=== PATIENT | male | born 1965 | race Caucasian/White ===

== ENCOUNTER 2016-08-02 15:06 | Emergency (ER) | payer BC ==
[2016-08-02 15:16] VITALS: BP 106/77; PULSE 69; RESP 16; TEMP 97.9
--- NOTE | 2016-08-02 15:36 | ED ---
Wound/Laceration HPI - General Chief Complaint: Wound/Laceration Stated Complaint: Lac/Finger Time Seen by Provider: 08/02/16 15:21 Source: patient, RN notes reviewed Mode of arrival: ambulatory Limitations: no limitations - History of Present Illness Initial Comments: 50-year-old male presents to emergency room chief complaint of right finger laceration. Patient states that he cut it while working with a tool all he was 6 in his car. Patient states hewas deep to his concern. Patient states that it was a sharp tool that could've broken off of it. Patient states he does not recall his last tetanus. Patient no other symptoms with this.Patient denies any recent fever, chills, shortness of breath, chest pain, back pain, abdominal pain, nausea vomiting, numbness or tingling, dysuria or hematuria, constipation or diarrhea, headaches or visual changes, or any other current symptoms. - Related Data Allergies Allergy/AdvReac Type Severity Reaction Status Date / Time No Known Allergies Allergy Verified 08/02/16 15:15 Review of Systems ROS Statement: Those systems with pertinent positive or pertinent negative responses have been documented in the HPI. ROS Other: All systems not noted in ROS Statement are negative. Past Medical History Past Medical History: No Reported History History of Any Multi-Drug Resistant Organisms: None Reported Past Surgical History: Back Surgery Additional Past Surgical History / Comment(s): shoulder Past Psychological History: No Psychological Hx Reported Smoking Status: Current every day smoker Past Alcohol Use History: Rare Past Drug Use History: None Reported General Exam - General Exam Comments Initial Comments: General: The patient is awake and alert, in no distress, and does not appear acutely ill. Neck: The neck is supple, there is no tenderness. Cardiovascular: There is a regular rate and rhythm. No murmur, rub or gallop is appreciated. Respiratory: Lungs are clear to auscultation, respirations are non-labored, breath sounds are equal. No wheezes, stridor, rales, or rhonchi. Musculoskeletal: Sensation intact with 2+ pulses throughout the right upper Extremities. Range of motion of the right finger.5/5 muscle strength testing. Patient does appear to have 3cm laceration over the PIP joint to the right index finger. Neurological: CN II-XII intact, There are no obvious motor or sensory deficits. Coordination appears grossly intact. Speech is normal. Skin: Skin is warm and dry and no rashes or lesions are noted. Psychiatric: Normal mood and affect. Limitations: no limitations Course Vital Signs 08/02/16 15:13 Temperature 97.9 F Pulse Rate 69 Respiratory 16 Rate Blood Pressure 106/77 O2 Sat by Pulse 97 Oximetry Procedures - Procedures Initial comment: The skin was anesthetized with 1% lidocaine. The laceration was then cleansed with Betadine and irrigated with normal saline. The wound was inspected, and there was no evidence of injury to deep structures. No foreign body was noted in the wound. A total of 5 skin sutures were placed utilizing 5-0 nylon to 3cm laceration to the right index finger. Medical Decision Making - Medical Decision Making 50-year-old male presents emergency Department chief complaint of right finger laceration. This time patient had suture repair. Discussed care follow-up and return parameters. We discussed all the patient's questions. He stated he understood all questions have been answered. They will be discharged home. Disposition Clinical Impression: Laceration of right index finger Disposition: HOME SELF-CARE Condition: Stable Instructions: Laceration (ED) Additional Instructions: Please use medication as discussed. Please follow up with family doctor if symptoms have not improved over the next two days. Please return to the emergency room if your symptoms increase or worsen or for any other concerns. Please return to the emergency room in 8-10 days to have sutures removed. Please leave wound covered for the first 24-48 hours and then leave open to air after that time. Please use clean soap and water to clean the suture area to prevent scabbing over the top of your sutures. Please watch for any signs of infection which may include but not limited to increased pain, swelling, redness , fever or chills. Please return to the emergency room if any signs of infection do occur. Please return to the emergency room for any other concerns or complications. Referrals: Fitz Youngblood MD [Primary Care Provider] - 1-2 days Time of Disposition: 15:50
[2016-08-02] MEDS ORDERED: DIPH,PERTUS(ACELL)TETVAC-LF 0.5 ML VIAL IM ONE (15:37)
== END 2016-08-02 16:02 | disposition home or self-care (01) ==
LOC: EC 15:06
DX: S61.210A Laceration without foreign body of right index finger without damage to nail, initial encounter (principal); F17.200 Nicotine dependence, unspecified, uncomplicated; Z23 Encounter for immunization; W45.8XXA Other foreign body or object entering through skin, initial encounter; Y92.810 Car as the place of occurrence of the external cause
CPT/HCPCS: 12002; 90471; 90715; 99282

== ENCOUNTER → 2017-06-18 | Outpatient (CLI) | payer BC ==
[~2017-06-18] MED LIST: REGADENOSON 0.4 MG/5 ML SYRINGE IV ONE
--- NOTE | 2017-06-18 11:17 | NM ---
EXAMINATION TYPE: NM stress lexiscan cardiolite DATE OF EXAM: 06/18/2017 COMPARISON: None HISTORY: Chest pain, R07.89 TECHNIQUE: After the intravenous administration of 10.85 mCi Tc 99m Sestamibi - Cardiolite resting S PECT images acquired 45 minutes post injection. The patient received 0.4mg Lexiscan, 29 mCi Tc 99m Sestamibi - Stress images obtained 30 minutes post injection FINDINGS: Review of stress and rest SPECT images demonstrates no distinct perfusion abnormality. Gated analysi s shows normal wall motion with an estimated left ventricular ejection fraction of 44 %. IMPRESSION: No scintigraphic evidence for reversible ischemia. Abnormal low ejection fraction. Consider echocardi ographic correlation.
--- NOTE | 2017-06-19 13:18 | EST ---
EXERCISE STRESS DATE OF SERVICE: 06/18/2017 AGE: 51 SEX: Male HT: 69" WT: 191 pounds PROTOCOL: LEXISCAN CARDIOLITE STAGE: DURATION OF EXERCISE: HEART RATE REST: 59 BLOOD PRESSURE REST: 108/70 MAXIMUM HEART RATE ACHIEVED: 85 MAXIMUM BLOOD PRESSURE: 123/70 85% MPHR: 144 100% MPHR: 169 METS: INDICATION OF THE STUDY: Chest pain CLINICAL INFORMATION: STRESS DATA: Pretesting physical examination showed a heart rate of 59, pressure is 108/70 mmHg. Baseline EKG showed sinus rhythm. 0.4 mg of Lexiscan was given to the patient over 15 seconds per protocol. Max heart rate was 85 beats per minute and maximum pressure was 123/70 mmHg. Clinically the patient did not have any symptoms of chest pain or discomfort and the EKG did not show any significant ST or T-wave abnormalities consistent with ischemia. CONCLUSION: 1. Nondiagnostic electrocardiogram stress testing in response to Lexiscan. 2. Please follow up on the Cardiolite portion on separate report from radiology department. MMODL / IJN: [id number] /
== END | disposition home or self-care (01) ==
LOC: RADNMMAIN 08:12
PROVIDERS: ATTEND Family Medicine
DX: R07.89 Other chest pain (principal)
CPT/HCPCS: 93017; 78452; A9500; J2785

== ENCOUNTER 2018-11-15 16:27 | Emergency (ER) | payer BC ==
[2018-11-15 16:33] VITALS: BP 119/79; PULSE 76; RESP 18; TEMP 98.6
--- NOTE | 2018-11-15 17:47 | ED ---
General Adult HPI - General Chief complaint: Extremity Problem,Nontraumatic Stated complaint: leg pain & numbness Time Seen by Provider: 11/15/18 17:13 Source: patient Mode of arrival: ambulatory Limitations: no limitations - History of Present Illness Initial comments: Dictation was produced using [employer] dictation software. please excuse any grammatical, word or spelling errors. Chief Complaint: 53-year-old male with no significant comorbidities presents with chief complaint of left lower extremity paresthesias, calf pain. History of Present Illness: Patient's 53-year-old male who denies any significant comorbidities. Presents today with worsening paresthesias to his left lateral thigh and calf pain. Patient was on a road trip recently where he was driving for several hours. This morning he woke up and there was a 2 inch purple van that was around his ankle. He states it lasted for couple seconds and went away with ambulation. States that those symptoms resolved. Over the last several weeks she's been struggling with paresthesias to the left lateral thigh. States he does not wear excessively tight clothing around his waist. He does have a history of back arthritic changes. Patient states he also has some mild calf pain to his left calf. States it's worse than usual. It has any history of blood clots. No blood clots in the family. Denies any swelling to the left. The ROS documented in this emergency department record has been reviewed and confirmed by me. Those systems with pertinent positive or negative responses have been documented in the HPI. All other systems are other negative and/or noncontributory. PHYSICAL EXAM: General Impression: Alert and oriented x3, not in acute distress HEENT: Normocephalic atraumatic, extra-ocular movements intact, pupils equal and reactive to light bilaterally, mucous membranes moist. Cardiovascular: Heart regular rate and rhythm, S1&S2 audible, no murmurs, rubs or gallops Chest: Lungs clear to auscultation bilaterally, no rhonchi, no wheeze, no rales Abdomen: Bowel sounds present, abdomen soft, non-tender, non-distended, no organomegaly Musculoskeletal: Pulses present and equal in all extremities, no peripheral edema Lower extremities: Equal femoral, popliteal, DP and PT pulses bilaterally. No discolorations noted that are asymmetrical. No lower extremity swelling at the mid tib area. Motor: no focal deficits noted Neurological: CN II-XII grossly intact, no focal motor or sensory deficits noted Skin: Intact with no visualized rashes Psych: Normal affect and mood ED course: 53 male presents with paresthesias to the left lateral thigh and calf pain. On arrival are within acceptable limits. Patient denies any shortness of breath. Denies a history of blood clot. Given history of recent road trip ultrasound of his lower extremity and evaluate for possible deep venous thrombosis. Paresthesias to his left lateral thigh are likely secondary to meralgia paresthetica.Venous duplex ultrasound was performed to look for extremity. There is no signs of deep venous thrombosis. In terms of what cause patient's discoloration around his ankle area that was sporadic it's unclear cause. Patient has benign physical examination. Pulses are well over the asymptomatic leg. Patient does not have that such discoloration currently. Patient be started on gabapentin. Still to avoid any tight fitting clothing around the waist. told to follow-up with his primary care physician upon discharge. Return for was discussed. Patient with for discharge. - Related Data Home Medications Medication Instructions Recorded Confirmed Armodafinil [Nuvigil] 250 mg PO DAILY 11/15/18 11/15/18 Sertraline [Zoloft] 150 mg PO DAILY 11/15/18 11/15/18 Previous Rx's Medication Instructions Recorded Gabapentin [Neurontin] 300 mg PO DAILY #16 cap 11/15/18 Allergies Allergy/AdvReac Type Severity Reaction Status Date / Time acetaminophen AdvReac Intermediate Nausea & Verified 11/15/18 17:25 [From Darvocet-N] Vomiting propoxyphene AdvReac Intermediate Nausea & Verified 11/15/18 17:25 [From Darvocet-N] Vomiting Review of Systems ROS Statement: Those systems with pertinent positive or pertinent negative responses have been documented in the HPI. ROS Other: All systems not noted in ROS Statement are negative. Past Medical History Past Medical History: No Reported History History of Any Multi-Drug Resistant Organisms: None Reported Past Surgical History: Back Surgery Additional Past Surgical History / Comment(s): shoulder Past Psychological History: Depression Smoking Status: Current every day smoker Past Alcohol Use History: Rare Past Drug Use History: None Reported General Exam Limitations: no limitations Course Vital Signs 11/15/18 16:31 Temperature 98.6 F Pulse Rate 76 Respiratory 18 Rate Blood Pressure 119/79 O2 Sat by Pulse 97 Oximetry Disposition Clinical Impression: Meralgia paresthetica of left side Disposition: HOME SELF-CARE Condition: Good Instructions (If sedation given, give patient instructions): Meralgia Paresthetica (ED) Prescriptions: Gabapentin [Neurontin] 300 mg PO DAILY #16 cap Is patient prescribed a controlled substance at d/c from ED?: No Referrals: Fitz Youngblood MD [Primary Care Provider] - 1-2 days Time of Disposition: 20:02
--- NOTE | 2018-11-15 19:42 | US ---
EXAMINATION TYPE: US venous doppler duplex LE LT DATE OF EXAM: 11/15/2018 7:26 PM COMPARISON: NONE CLINICAL HISTORY: Pain. Pain and numbness left leg x 6 weeks. Worse x 1 day. No hx DVT. PT not on blo od thinners. SIDE PERFORMED: Left TECHNIQUE: The lower extremity deep venous system is examined utilizing real time linear array sonog franklin with graded compression, doppler sonography and color-flow sonography. VESSELS IMAGED: External Iliac Vein (EIV) Common Femoral Vein Deep Femoral Vein Greater Saphenous Vein * Femoral Vein Popliteal Vein Small Saphenous Vein * Proximal Calf Veins (* superficial vessels) Left Leg: No evidence of DVT in the left leg at this time. IMPRESSION: No evidence of deep venous thrombosis in the left leg.
== END 2018-11-15 20:05 | disposition home or self-care (01) ==
LOC: EC 16:27
DX: G57.12 Meralgia paresthetica, left lower limb (principal); F32.9 Major depressive disorder, single episode, unspecified; F17.200 Nicotine dependence, unspecified, uncomplicated; Z79.899 Other long term (current) drug therapy; Z88.5 Allergy status to narcotic agent; Z88.6 Allergy status to analgesic agent
CPT/HCPCS: 99284

== ENCOUNTER 2020-02-08 14:56 | Emergency (ER) | payer BC ==
[2020-02-08] MEDS ORDERED: KETOROLAC 15 MG/ML 1 ML VIAL IM STA (15:53)
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
[2020-02-08 16:51] VITALS: BP 110/70; PULSE 62; RESP 19; TEMP 97.7
== END 2020-02-08 16:51 | disposition home or self-care (01) ==
LOC: EC 14:56
DX: S20.212A Contusion of left front wall of thorax, initial encounter (principal); F41.9 Anxiety disorder, unspecified; F17.200 Nicotine dependence, unspecified, uncomplicated; Z79.899 Other long term (current) drug therapy; Z88.8 Allergy status to other drugs, medicaments and biological substances; Z88.5 Allergy status to narcotic agent; W01.198A Fall on same level from slipping, tripping and stumbling with subsequent striking against other object, initial encounter; Y93.89 Activity, other specified; Y92.89 Other specified places as the place of occurrence of the external cause
CPT/HCPCS: 71101; 99283; 96372; J1885

== ENCOUNTER 2022-04-04 22:34 | Emergency (ER) | payer BC, OTHER ==
[2022-04-05 00:06] VITALS: BP 120/79; PULSE 97; RESP 14; TEMP 98.8
[2022-04-05] MEDS ORDERED: SULFAMETH-TMP DS STARTER PACK 2 TAB BTL PO STA (00:31)
[2022-04-05] MEDS ORDERED: CEPHALEXIN 500MG STARTER PACK 4 CAP BTL PO STA (00:31)
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
== END 2022-04-05 01:04 | disposition home or self-care (01) ==
LOC: EC 22:34
DX: L73.9 Follicular disorder, unspecified (principal); F32.A Depression, unspecified; F17.200 Nicotine dependence, unspecified, uncomplicated; Z79.899 Other long term (current) drug therapy; Z88.5 Allergy status to narcotic agent
CPT/HCPCS: 99283

== ENCOUNTER 2022-08-09 01:11 | Emergency (ER) | payer BC ==
[2022-08-09 01:31] VITALS: TEMP 97.7
[2022-08-09] MEDS ORDERED: ONDANSETRON 4 MG/2 ML VIAL IVP STA (02:07)
[2022-08-09] MEDS ORDERED: KETOROLAC 15 MG/ML 1 ML VIAL IVP STA (02:07)
[2022-08-09 02:30] LABS: Appearance,Urine Turbid (Clear)
[2022-08-09 02:31] LABS: Color,Urine Brown
[2022-08-09 02:32] LABS: Hyaline Casts,Urine 27 /lpf (0-2); Mucus,Urine Many /hpf; RBC,Urine 54 /hpf (0-5)
[2022-08-09 03:05] LABS: Basophils % (A) 0 %; Eosinophils # (A) 0.1 k/uL (0-0.7); Eosinophils % (A) 2 %; HCT 41.7 % (39.0-53.0); HGB 13.8 gm/dL (13.0-17.5); Lymphocytes # (A) 1.3 k/uL (1.0-4.8); Lymphocytes % (A) 22 %; MCH 30.1 pg (25.0-35.0); MCHC 33.1 g/dL (31.0-37.0); MCV 91.2 fL (80.0-100.0); Mean Platelet Volume 7.2; Monocytes # (A) 0.8 k/uL (0-1.0); Monocytes % (A) 13 %; Neutrophils # (A) 3.5 k/uL (1.3-7.7); Neutrophils % (A) 59 %; Platelet Count 240 k/uL (150-450); RBC 4.57 m/uL (4.30-5.90); RDW 15.1 % (11.5-15.5)
[2022-08-09] MEDS ORDERED: MORPHINE SULFATE 4 MG/ML SYRINGE IVP STA (03:36)
--- NOTE | 2022-08-09 03:36 | CT ---
EXAMINATION TYPE: CT abdomen pelvis wo con DATE OF EXAM: 08/09/2022 COMPARISON: None HISTORY: R FLANK PAIN CT DLP: 634.2 mGycm Automated exposure control for dose reduction was used. Images obtained from the diaphragm to the floor the pelvis with no contrast. Lung bases are clear. No pleural effusion. Heart size is normal. There is coronary artery calcificati on. There are numerous calcified splenic granulomata. Liver appears intact. No pancreatic mass. Gallb ladder appears normal. The stomach is intact. There is no adrenal mass. Kidneys of normal size and contour. There is slight fullness of the right u pper collecting system. There is a 3 mm calculus in the lower right ureter. No significant hydronephr osis. No retroperitoneal adenopathy and is not seen. No sign of thickened appendix. The bladder diste nds smoothly. No inguinal hernia. There are some sigmoid diverticula. No diverticulitis. There is no mesenteric edema. No ascites or free air. No sign of bowel obstruction. The lumbar vertebrae have normal alignment. Posterior talus are intact. No compression fracture. Ther e is degenerative hypertrophic spurring of the endplates in the lumbar spine. There is multilevel fac et arthropathy. The bony pelvis is intact. There is mild acetabular spurring. No fracture. IMPRESSION: Small obstructing calculus in the lower right ureter with minimal ectasia of the right upper collecti ng system. No evidence of a renal calculus. Old granulomatous disease. Appendix not seen.
[2022-08-09 03:47] VITALS: BP 134/91; PULSE 65; RESP 16
[2022-08-09 03:51] LABS: Albumin 4.2 g/dL (3.5-5.0); Calcium 8.8 mg/dL (8.4-10.2); Potassium 3.9 mmol/L (3.5-5.1); Total Bilirubin 0.3 mg/dL (0.2-1.3); Total Protein 7.2 g/dL (6.3-8.2)
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
== END 2022-08-09 04:20 | disposition home or self-care (01) ==
LOC: EC 01:11
DX: N20.1 Calculus of ureter (principal); F32.A Depression, unspecified; F17.200 Nicotine dependence, unspecified, uncomplicated; Z88.6 Allergy status to analgesic agent
CPT/HCPCS: 36415; 80053; 85025; 81001; 74176; 99284; 96374; 96375 ×2; J2270; J2405; J1885

== ENCOUNTER → 2022-10-30 | Outpatient (CLI) | payer OTHER ==
--- NOTE | 2022-10-30 13:27 | MR ---
EXAMINATION TYPE: MR brain and iac wo/w con DATE OF EXAM: 10/30/2022 1:15 PM COMPARISON: NONE HISTORY: Hearing loss TECHNIQUE: Multiplanar and multispin-echo imaging of the brain was performed both before and after the administr ation of contrast. High-resolution images are obtained of the internal auditory canals performed uti lizing 9 mL intravenous Gadavist contrast. The ventricles, basal cisterns and sulci overlying the cerebral convexities are within normal limits. There is no evidence for midline shift or mass effect. Acute intracranial hemorrhage or extra-axial collection is not evident. There are no abnormal areas of increased or decreased signal intensity within the brain parenchyma. High-resolution imaging of the internal auditory canals fails demonstrate evidence for an enhancing a coustic schwannoma or cerebellopontine cistern angle mass. Following contrast administration, there is no evidence for pathologic enhancement or enhancing mass. The paranasal sinuses and mastoid air cells are well-aerated. IMPRESSION: 1. No evidence of acoustic schwannoma or cerebellopontine angle mass.
== END | disposition home or self-care (01) ==
LOC: RADMRIMAIN 12:02
PROVIDERS: ATTEND Otolaryngology
DX: R42 Dizziness and giddiness (principal)
CPT/HCPCS: 70553; A9585

== ENCOUNTER 2024-05-29 04:49 | Emergency (ER) | payer BC ==
[2024-05-29 04:57] VITALS: RESP 18
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
[2024-05-29] MEDS: SODIUM CHLORIDE 0.9% 1,000 ML IV STA (05:18)
[2024-05-29] MEDS: HYDROmorphone 1 MG/ML 1 ML SYRINGE IVP STA (05:19)
[2024-05-29 05:35] LABS: Basophils % (A) 1 %; Eosinophils # (A) 0.2 k/uL (0-0.7); Eosinophils % (A) 3 %; HCT 43.6 % (39.0-53.0); HGB 14.3 gm/dL (13.0-17.5); Lymphocytes # (A) 1.5 k/uL (1.0-4.8); Lymphocytes % (A) 24 %; MCHC 32.8 g/dL (31.0-37.0); MCV 94.4 fL (80.0-100.0); Mean Platelet Volume 7.2; Monocytes # (A) 0.6 k/uL (0-1.0); Monocytes % (A) 10 %; Neutrophils # (A) 3.7 k/uL (1.3-7.7); Neutrophils % (A) 59 %; Platelet Count 225 k/uL (150-450); RBC 4.62 m/uL (4.30-5.90); RDW 13.5 % (11.5-15.5); WBC 6.3 k/uL (3.8-10.6)
[2024-05-29] MEDS: ONDANSETRON 4 MG/2 ML VIAL IVP STA (05:39)
[2024-05-29 05:48] LABS: ALT 13 U/L (4-49); AST 22 U/L (17-59); African American GFR (CKD) >90 (>60 ml/min/1.73 sqM); Alkaline Phosphatase 57 U/L (38-126); Amylase 53 U/L (30-110); Anion Gap 11 mmol/L; Blood Urea Nitrogen 15 mg/dL (9-20); Carbon Dioxide 20 mmol/L (22-30); Chloride 111 mmol/L (98-107); Glucose 96 mg/dL (74-99); Lipase 49 U/L (23-300); Non-African American GFR(CKD) >90 (>60 ml/min/1.73 sqM); Sodium 142 mmol/L (137-145); Total Bilirubin 0.2 mg/dL (0.2-1.3); Total Protein 6.6 g/dL (6.3-8.2)
[2024-05-29] MEDS: KETOROLAC 15 MG/ML 1 ML VIAL IVP STA (05:50)
[2024-05-29] MEDS: IBUPROFEN 600 MG STARTER PACK 4 TAB BTL PO STA (07:39)
[2024-05-29] MEDS: TAMSULOSIN 0.4 MG CAP.ER.24H PO STA (07:39)
[2024-05-29] MEDS: ONDANSETRON 4 MG ODT STARTER PACK 2 TAB BTL PO STA (07:39)
[2024-05-29] MEDS: ACET/COD 300 MG/30 MG STARTER PACK 6 TAB BTL PO STA (07:40)
--- NOTE | 2024-05-29 07:45 | CT ---
EXAMINATION TYPE: CT abdomen pelvis wo con DATE OF EXAM: 05/29/2024 6:37 AM COMPARISON: 08/09/2022 CLINICAL INDICATION: Male, 58 years old with history of abdominal pain, Lt flank pain TECHNIQUE: Axial images were obtained from above the diaphragm to the pubic rami in the axial plane a t 5 mm thick sections. Reconstructed images are reviewed on the computer in the coronal plane. CONTRAST: mL of . Study performed without Oral Contrast DLP: 593.1 mGycm, Automated exposure control for dose reduction was used. FINDINGS: Limited CT sections are obtained the lung bases. Some mild compressive atelectasis is present within the dependent portion.. CT ABDOMEN: Liver: Normal Spleen: Few scattered calcifications are within the spleen Pancreas: Normal Adrenal glands: The adrenal glands are normal. Gallbladder: Normal Kidneys: No masses are evident. No hydronephrosis is present. No cysts are present. No renal stone s are evident. Aorta: Normal Inferior vena cava: Normal. CT PELVIS: Diverticular changes are within the sigmoid colon. No adjacent inflammatory changes to suggest acute diverticulitis. The study is without oral contrast limiting bowel evaluation Appendix: Not identified. No dilated tubular structure or inflammatory change is evident. Urinary bladder: Normal. Genitourinary structures: Prostate is normal Osseous structures: No suspicious lytic or sclerotic lesions. Some spondylosis in the lumbar spine IMPRESSION: 1. Diverticulosis without acute diverticulitis. [facility], , 05/29/2024 7:42 AM
[2024-05-29 08:16] VITALS: BP 145/96; PULSE 69; TEMP 97.9
== END 2024-05-29 08:24 | disposition home or self-care (01) ==
LOC: EC 04:49
DX: N20.1 Calculus of ureter (principal); F17.200 Nicotine dependence, unspecified, uncomplicated; Z88.8 Allergy status to other drugs, medicaments and biological substances
CPT/HCPCS: 36415; 80053; 82150; 83605; 83690; 85025; 74176; 99284; 96374; 96375; 96361; J1171; J1885; S0119

== ENCOUNTER 2024-05-30 03:05 | Inpatient (IN) | payer BC ==
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
[2024-05-30] MEDS: SODIUM CHLORIDE 0.9% 1,000 ML IV STA (03:45)
[2024-05-30] MEDS: HYDROmorphone 1 MG/ML 1 ML SYRINGE IVP STA (03:47)
[2024-05-30] MEDS: KETOROLAC 15 MG/ML 1 ML VIAL IVP STA (03:52)
[2024-05-30] MEDS: ONDANSETRON 4 MG/2 ML VIAL IVP STA (03:54)
[2024-05-30 04:05] LABS: Basophils % (A) 0 %; Eosinophils # (A) 0.1 k/uL (0-0.7); Eosinophils % (A) 2 %; HCT 41.9 % (39.0-53.0); Lymphocytes # (A) 1.5 k/uL (1.0-4.8); Lymphocytes % (A) 24 %; MCH 31.4 pg (25.0-35.0); MCHC 33.3 g/dL (31.0-37.0); MCV 94.2 fL (80.0-100.0); Mean Platelet Volume 7.5; Monocytes # (A) 0.6 k/uL (0-1.0); Monocytes % (A) 10 %; Neutrophils # (A) 3.7 k/uL (1.3-7.7); Neutrophils % (A) 59 %; Platelet Count 206 k/uL (150-450); RBC 4.45 m/uL (4.30-5.90); RDW 13.2 % (11.5-15.5); WBC 6.2 k/uL (3.8-10.6)
[2024-05-30 04:16] LABS: ALT 12 U/L (4-49); AST 20 U/L (17-59); African American GFR (CKD) >90 (>60 ml/min/1.73 sqM); Albumin 3.9 g/dL (3.5-5.0); Alkaline Phosphatase 47 U/L (38-126); Anion Gap 6 mmol/L; Blood Urea Nitrogen 13 mg/dL (9-20); Calcium 8.7 mg/dL (8.4-10.2); Carbon Dioxide 24 mmol/L (22-30); Chloride 110 mmol/L (98-107); Glucose 77 mg/dL (74-99); Magnesium 1.8 mg/dL (1.6-2.3); Non-African American GFR(CKD) >90 (>60 ml/min/1.73 sqM); Phosphorus 3.2 mg/dL (2.5-4.5); Sodium 140 mmol/L (137-145); Total Bilirubin 0.3 mg/dL (0.2-1.3); Total Protein 6.5 g/dL (6.3-8.2)
[2024-05-30 04:30] LABS: Appearance,Urine Clear (Clear); Bilirubin,Urine 1+ (Negative); Blood,Urine Negative (Negative); Budding Yeast,Urine Rare /hpf; Color,Urine Brown; Glucose,Urine (UA) Negative (Negative); Hyaline Casts,Urine 5 /lpf (0-2); Ketones,Urine Negative (Negative); Leukocyte Esterase,Urine Negative (Negative); Mucus,Urine Rare /hpf; Nitrite,Urine Positive (Negative); PH, Urine 5.5 (5.0-8.0); Protein,Urine Negative (Negative); RBC,Urine <1 /hpf (0-5); Specific Gravity,Urine 1.025 (1.001-1.035); WBC,Urine 1 /hpf (0-5)
--- NOTE | 2024-05-30 06:43 | CT ---
EXAMINATION TYPE: CT abdomen pelvis wo con DATE OF EXAM: 05/30/2024 4:24 AM COMPARISON: CT abdomen pelvis most recent from 05/29/2024 CLINICAL INDICATION: Male, 58 years old with history of pain; PT presents with left flank/back pain t hat radiates to his knee. Pt was seen treated and released from here yesterday for similar symptoms. TECHNIQUE: Axial CT abdomen pelvis wo con;Sagittal and coronal reformats were created on a separate workstation. Contrast used: mL of , (none if empty) Oral contrast used: without Oral Contrast (none if empty) CT DLP: 708 mGycm, Automated exposure control for dose reduction was used. FINDINGS: LOWER CHEST: Left lower lobe calcified granuloma. ABDOMEN LIVER: Unremarkable GALLBLADDER AND BILE DUCTS: Unremarkable. PANCREAS: Unremarkable. SPLEEN: Scattered calcified granulomas. ADRENAL GLANDS: Unremarkable. KIDNEYS AND URETERS: No evidence of hydronephrosis or renal calculus. The ureters are unremarkable. PELVIS BLADDER: No evidence for wall thickening or mass given limitations of exam. REPRODUCTIVE: Unremarkable. ABDOMEN & PELVIS STOMACH AND BOWEL: No evidence of bowel obstruction. Scattered colonic diverticula. The appendix is n ot visualized and may be surgically absent. PERITONEUM/RETROPERITONEUM: No evidence of pneumoperitoneum or free fluid. VASCULATURE: Mild atherosclerotic calcifications are present throughout the abdominal aorta and its b ranches. No evidence of aortic aneurysm. MUSCULOSKELETAL: No acute osseous abnormalities. Mild disc degeneration changes are present throughou t the thoracolumbar spine. LYMPH NODES: No gross evidence for lymphadenopathy. SOFT TISSUE/ABDOMINAL WALL: Fatty changes to the inguinal canals right greater than left. IMPRESSION: 1. No evidence for acute abdominal process to explain the patient's pain. No significant change from prior. 2. No evidence for obstructive uropathy or renal calculus. 3. Colonic diverticulosis. 4. Prostatomegaly, correlate with serum PSA. 5. 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 [facility], , 05/30/2024 6:41 AM
[2024-05-30] MEDS ORDERED: NALOXONE 0.4 MG/ML 1 ML VIAL IV PRN (07:06)
[2024-05-30] MEDS: SODIUM CHLORIDE 0.9% 1,000 ML IV SCH (07:50)
[2024-05-30] MEDS: HYDROmorphone 1 MG/ML 1 ML SYRINGE IVP PRN (07:52)
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
[2024-05-30] MEDS: ESCITALOPRAM 20 MG TAB PO SCH (20:18)
[2024-05-30] MEDS: ONDANSETRON ODT 4 MG TAB PO PRN (22:40)
[2024-05-31 09:16] LABS: ALT 11 U/L (10-49); AST 18 U/L (14-35); Albumin 3.7 g/dL (3.8-4.9); Albumin/Globulin Ratio 1.76 Ratio (1.60-3.17); Alkaline Phosphatase 49 U/L (41-126); BUN/Creat Ratio 14.11 Ratio (12.00-20.00); Blood Urea Nitrogen 12.7 mg/dL (9.0-27.0); Calcium 8.2 mg/dL (8.7-10.3); Carbon Dioxide 22.4 mmol/L (21.6-31.8); Chloride 111 mmol/L (96-109); Globulin 2.1 g/dL (1.6-3.3); Glucose 91 mg/dL (70-110); Magnesium 1.8 mg/dL (1.5-2.4); Phosphorus 3.5 mg/dL (2.4-5.1); Potassium 4.6 mmol/L (3.5-5.5); Sodium 141 mmol/L (135-145); Total Bilirubin 0.2 mg/dL (0.3-1.2); Total Protein 5.8 g/dL (6.2-8.2)
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
[2024-05-31 10:21] LABS: Basophils # (A) 0.04 X 10*3/uL (0.00-0.10); Basophils % (A) 0.6 %; Eosinophils # (A) 0.13 X 10*3/uL (0.04-0.35); Eosinophils % (A) 2.1 %; HCT 39.7 % (39.6-50.0); HGB 13.1 g/dL (13.0-17.0); Lymphocytes # (A) 1.37 X 10*3/uL (0.90-5.00); Lymphocytes % (A) 21.7 %; MCH 30.5 pg (27.0-32.0); MCV 92.3 FL (80.0-97.0); Mean Platelet Volume 9.8 FL (9.5-12.2); Monocytes # (A) 0.54 X 10*3/uL (0.20-1.00); Monocytes % (A) 8.5 %; NRBC Per 100 WBC 0 X 10*3/uL (0.00-0.01); Neutrophils # (A) 4.23 X 10*3/uL (1.80-7.70); Neutrophils % (A) 66.9 %; Platelet Count 196 X 10*3/uL (140-440); RDW 13.4 % (11.5-14.5); WBC 6.32 X 10*3/uL (4.50-10.00)
[2024-05-31] MEDS: NICOTINE 21MG/24HR PATCH TRANSDERM SCH (12:51)
[2024-05-31] MEDS: PANTOPRAZOLE 40 MG/10 ML VIAL IVP SCH (12:51)
[2024-06-01] MEDS ORDERED: DEXTROSE 50% SYRINGE 50 ML IVP PRN ×2 (13:13)
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
[2024-06-01] MEDS: DEXAMETHASONE SOD PHOSPHATE 4 MG/ML 1 ML VIAL IVP SCH (14:27)
[2024-06-01] MEDS: GABAPENTIN 300 MG CAP PO SCH (14:28)
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
[2024-06-01] MEDS: HYDROcodone/APAP 5-325MG 1 EACH TAB PO PRN (15:54)
[2024-06-01 17:40] LABS: Glucose,Whole Blood 140 mg/dL (70-110)
[2024-06-01] MEDS: INSULIN ASPART (NovoLOG) 100 UNIT/ML VIAL SQ SCH (17:44)
[2024-06-01] MEDS ORDERED: DEXAMETHASONE SOD PHOSPHATE 4 MG/ML 1 ML VIAL IVP SCH (18:00)
[2024-06-01] MEDS: polyethylene glycoL 3350 17 GM POWD.PACK PO SCH (18:07)
[2024-06-01 19:45] LABS: Glucose,Whole Blood 157 mg/dL (70-110)
[2024-06-02 06:03] LABS: Glucose,Whole Blood 122 mg/dL (70-110)
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
[2024-06-02 12:05] LABS: Glucose,Whole Blood 122 mg/dL (70-110)
--- NOTE | 2024-06-02 12:21 | P.PN ---
Subjective Progress Note Date: 06/02/24 Principal diagnosis: left lower extremity radiculopathy;. Left lower extremity weakness; low back pain; spondylolisthesis L5-S1; degenerative disc disease; lumbar spondylosis Patient was seen at bedside this morning lying in the semirecumbent position awaiting transfer for MRI of lumbar spine. Patient says he has noted improvement as far as the numbness and tingling in the left lower extremity since he was started on steroids yesterday. Patient says he has been up walking a little bit and does feel little bit better as far as the issues in the leg are concerned. Patient denies any other changes at this time. Objective - Vital Signs Vital signs: Vital Signs Temp 98.0 F 06/02/24 07:30 Pulse 84 06/02/24 07:30 Resp 17 06/02/24 07:30 BP 124/76 06/02/24 07:30 Pulse Ox 94 L 06/02/24 07:30 FiO2 Intake & Output 06/01/24 06/02/24 06/02/24 18:59 06:59 18:59 Intake Total 240 240 Balance 240 240 Intake: Oral 240 240 Other: Voiding Method Toilet Toilet # Voids 1 2 - Exam Inspection: Negative for any open fractures, significant erythema/ecchymosis/open wounds. Sensation: Diminished sensation extending from left hip anteriorly to just proximal to the left knee has improved since yesterday since starting on IV steroids Palpation: Moderate tenderness to palpation over the lower lumbar spine at midline as well as over the left SI joint. Nontender to palpation on rest of exam. Range of motion: Patient does have full range of motion throughout bilateral upper extremities and right lower extremity exam. Patient does have limited range of motion in left hip flexion due to referred pain and stiffness in the low back. Patient does have good range of motion in left ankle and left knee in flexion/tension. Motor: 4+/5 in all major motor groups in bilateral upper extremities and right lower extremity on exam. 4-/5 in left lower extremity on exam Neurovascular: Radial pulse intact, 2+ bilaterally. Cap refill under 3 seconds in digits of upper extremities. DP pulses palpable bilaterally. Special test: Positive straight leg raise test of the left lower extremity. Negative Homans bilaterally. Negative clonus bilaterally. Negative Kristin bilaterally. - Labs CBC & Chem 7: 05/31/24 05:24 05/31/24 05:24 Labs: Abnormal Lab Results - Last 24 Hours (Table) 06/01/24 06/01/24 06/02/24 Range/Units 17:39 19:43 06:01 POC Glucose (mg/dL) 140 H 157 H 122 H (70-110) mg/dL 06/02/24 Range/Units 12:04 POC Glucose (mg/dL) 122 H (70-110) mg/dL Assessment and Plan Assessment: 1 left lower extremity radiculopathy;. Left lower extremity weakness; low back pain; spondylolisthesis L5-S1; degenerative disc disease; lumbar spondylosis Plan: 1. left lower extremity radiculopathy;. Left lower extremity weakness; low back pain; spondylolisthesis L5-S1; degenerative disc disease; lumbar spondylosis -CT scan of the abdomen/pelvis does reveal L5-S1 spondylolisthesis. There is evident degenerative disc disease throughout the lumbar spine as well as lumbar spondylosis. I did review the findings of the imaging and exam with my attending, Dr. Townsend. Due to the patient's left lower extremity radicular symptoms we have ordered MRI of lumbar spine for further evaluation. Awaiting results from MRI before further recs. Continue on Decadron 4 mg every 6 hours IVP due to symptoms. Patient has had improvement in radicular sx since starting on decadron yesterday. Patient may weight-bear as tolerated with walker as needed. Gabapentin for symptom control. Appreciate medical management. Further recommendations to follow once MRI of lumbar spine is performed. 2. Appreciate medical management 3. Pain management - norco; gabapentin 4. DVT prophylaxis recs 5. GI prophylaxis recs 6. PT/OT -weightbearing as tolerated with walker as needed 7. Encourage incentive spirometer use Time with Patient: Less than 30
[2024-06-02] MEDS: SENNOSIDES-DOCUSATE SODIUM 1 EACH TAB PO SCH (13:28)
--- NOTE | 2024-06-02 14:00 | MR ---
EXAMINATION TYPE: MR lumbar spine wo/w con DATE OF EXAM: 06/02/2024 1:08 PM COMPARISON: 05/30/2024. CLINICAL INDICATION: Male, 58 years old with history of back pain; PHH, Low back pain into left leg TECHNIQUE: Multi planar, multi sequence imaging was performed utilizing: T1-weighted, T2-weighted, a nd turbo inversion recovery imaging of the lumbar spine. IV Contrast: 9 mL Gadobutrol (None, if empty) FINDINGS: Alignment: The lumbar vertebral bodies have preserved heights and alignment. Cord: The conus medullaris and the distal spinal cord appear unremarkable with regards to their signa l intensity and morphology. Bones/Discs: Moderate degeneration changes throughout the spine with osteophyte formation and facet j oint arthropathy. Multilevel disc desiccation is present. No abnormal inversion recovery signal to hong ggest bony edema. Flattened appearance of the L2-L3 disc space. T12-L1: No evidence of significant spinal canal stenosis or neural foraminal stenosis. L1-L2: No evidence of significant spinal canal stenosis or neural foraminal stenosis. L2-L3 and L3-L4: Left subarticular/foraminal disc material possibly from L2-L3 sequestration versus L 3-L4 disc extrusion. This abuts multiple left-sided forming and exiting nerve roots.. There is modera te spinal canal stenosis at L3-L4 no significant stenosis at L2-L3 and severe left and moderate to se salma right neural foraminal stenosis at L3-L4. Mild to moderate bilateral neural foraminal stenosis a t L2-L3. There is a flattened appearance of the L2-L3 disc space which is why sequestration could be considered. L4-L5: Left central disc protrusion with moderate spinal canal stenosis. Abuts multiple nerve roots. There is severe right and moderate severe left neural foraminal stenosis. L5-S1: The disc has a rounded posterior morphology without significant spinal canal stenosis. Facet j oint arthropathy with moderate to severe right and [id number] left neural foraminal stenosis. No significant spinal canal or neural foraminal stenosis in the remainder of the visualized levels. Other findings: None. IMPRESSION: 1. L2-L3 sequestration versus L3-L4 disc extrusion with superior migration resulting in severe left and moderate severe right neural foraminal stenosis L3-L4. 2. L4-L5 Left central disc protrusion which abuts multiple nerve roots with moderate spinal canal st enosis. 3. Moderate degeneration changes throughout the spine with multilevel neural foraminal stenosis wors e at L5-S1 with moderate to severe right; moderate 2 severe left and severe right L4-L5 and severe le ft and [id number]-ul-yxilra right L3-L4. [facility], , 06/02/2024 1:56 PM [facility], , 06/02/2024 1:58 PM
--- NOTE | 2024-06-02 15:16 | P.PN ---
Progress Note - Text Progress Note Date: 06/02/24 MRI reviewed of the lumbar spine. There is severe stenosis from L3-5 with large HNP at L3-4 with disc sequestration and disc osteophyte complex formation contributing to stenosis. L4-5 shows severe central and b/l foraminal stenosis due to disc herniation, ligamental overgrowth and facet overgrowth. There is moderate to severe stenosis at L5-S1 due to right foraminal disc herniation as well. No acute fractures noted. Spondylosis is widespread from L2-S1 at this time with disc collapse and disc degeneration with flattened LL overall. We would recommend at this time given the patients sx and LE radiculopathy a L3- 5 laminectomy for decompression with L3-4 and L4-5 micro[address]. We will place him on the schedule for tomorrow. NPO at midnight Pain control as needed ABX in form of Ancef 2 g pre op TXA 2 g for OR We will discuss with patient risks and benefits
[2024-06-02 17:02] LABS: Glucose,Whole Blood 274 mg/dL (70-110)
[2024-06-02 20:18] LABS: Glucose,Whole Blood 114 mg/dL (70-110)
[2024-06-02] MEDS: polyethylene glycoL 3350 17 GM POWD.PACK PO SCH (20:54)
[2024-06-03 05:51] LABS: Glucose,Whole Blood 122 mg/dL (70-110)
[2024-06-03 06:41] LABS: Partial Thromboplastin Time 23.3 sec (22.0-30.0); Prothrombin Time 11.4 sec (10.0-12.5)
--- NOTE | 2024-06-03 07:42 | P.PN ---
Progress Note - Text Progress Note Date: 06/03/24 PROGRESS NOTE: Date: June 03, 2024 Patient: Alo Booth, 58-year-old male Subjective: Patient with severe lumbar stenosis L3-S1 experiencing persistent lower extremity radiculopathy, weakness, and paresthesias. Conservative management has been unsuccessful in managing symptoms. Objective: Patient evaluated for surgical intervention. Imaging confirms severe lumbar stenosis L3-S1. 4/5 LE L>R PARESTHESIAS L>R Low back pain and radiculopathy with + SLR LEFT 2/4 DTR all 2/4 distal pulses all Neg pathological reflexes Assessment: 58 yo male with LLE radiculopathy, severe, with weakness, paresthesias, neurogenic claudication Severe lumbar stenosis L3-S1 with neurological symptoms refractory to conservative management. Plan: - L3-5 laminectomy today - NPO -Discussed risks and benefits of procedure including but not limited to risk of bleeding, infection , damage to tissues, nerve damage, weakness, continued pain, need for re-operation, risk of anesthesia up to and including . He was willing to assume these risks and all the risks of surgery. He was willing to proceed today as scheduled.
[2024-06-03 12:13] LABS: Glucose,Whole Blood 107 mg/dL (70-110)
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
[2024-06-03] MEDS: IV FLUID CONTINUATION 1,000 ML IV ONE (13:55)
[2024-06-03] MEDS: LACTATED RINGERS 1,000 ML BAG IV STA (13:57)
[2024-06-03] MEDS: ONDANSETRON 4 MG/2 ML VIAL IVP STA (14:37)
[2024-06-03] MEDS ORDERED: LIDOCAINE 1% INJ 10MG/ML (20 ML MDV) ONE (15:12)
[2024-06-03] MEDS ORDERED: fentaNYL (PF) 50 MCG/ML 2 ML AMP ONE (15:12)
[2024-06-03] MEDS ORDERED: SUCCINYLCHOLINE CHLORIDE 200 MG/10 ML VIAL IV ONE (15:12)
[2024-06-03] MEDS ORDERED: PROPOFOL 10 MG/ML 20 ML VIAL IV ONE (15:12)
[2024-06-03] MEDS ORDERED: GLYCOPYRROLATE 0.2 MG/ML 2 ML VIAL ONE (15:12)
[2024-06-03] MEDS ORDERED: TRANEXAMIC 1,000 MG/100ML-NACL PREMIX BAG ONE (15:12)
[2024-06-03] MEDS ORDERED: KETAMINE HCL IN 0.9 % NACL 50 MG/5 ML SYRINGE ONE (15:12)
[2024-06-03] MEDS ORDERED: ePHEDrine 50 MG/ML 1 ML VIAL ONE (15:12)
[2024-06-03] MEDS ORDERED: NEOSTIGMINE 1 MG/ML 10 ML VIAL ONE (15:12)
[2024-06-03] MEDS ORDERED: ROCURONIUM 10 MG/ML (5 ML VIAL) IV ONE (15:12)
[2024-06-03] MEDS ORDERED: MIDAZOLAM 2 MG/2 ML VIAL ONE (15:12)
[2024-06-03] MEDS: ceFAZolin 3,000 MG in SODIUM CHLORIDE 0.9% IRRIGATIO 3,000 ML IRRIGATION ONE (15:51)
[2024-06-03] MEDS: BUPIVACAINE (PF) 0.5% 30 ML VIAL SQ ONE (15:51)
[2024-06-03] MEDS: THROMBIN (BOVINE) 5,000 UNIT VIAL TOPICAL ONE (15:51)
[2024-06-03] MEDS: LIDOCAINE 2%-EPI 1:100,000 20 ML VIAL SQ ONE (15:51)
[2024-06-03] MEDS: GENTAMICIN 80 MG in SODIUM CHLORIDE 0.9% IRRIGATIO 3,000 ML IRRIGATION ONE (15:51)
[2024-06-03] MEDS: LACTATED RINGERS 1,000 ML IV ONE (16:39)
[2024-06-03] MEDS: VANCOMYCIN 1,000 MG VIAL MISCELLANE ONE (16:49)
[2024-06-03] MEDS ORDERED: MAGNESIUM HYDROXIDE 2,400 MG/30 ML CUP PO PRN (17:20)
[2024-06-03] MEDS ORDERED: ONDANSETRON 4 MG/2 ML VIAL IVP PRN (17:20)
[2024-06-03] MEDS ORDERED: HYDROmorphone 1 MG/ML 1 ML SYRINGE IVP PRN (17:20)
--- NOTE | 2024-06-03 17:21 | FL ---
EXAMINATION TYPE: FL guidance operating room, XR lumbar spine 2 or 3V DATE OF EXAM: 06/03/2024 5:13 PM COMPARISON: Pre Operative Images if available both CT/MRI or plain film CLINICAL INDICATION: Male, 58 years old with history of LAMI 3-5; TECHNIQUE: FL guidance operating room, XR lumbar spine 2 or 3V, multiple fluoroscopic images provided for procedure. Total fluoroscopy time: 4 seconds Total submitted images to PACS: 2 DAP: [id number] mGym2 Gycm2 uGym2 cGycm2 or equivalent. FINDINGS: Fluoroscopic images during surgery. No immediate complication identified. IMPRESSION: 1. No evidence for intraoperative complication. 2. Please see the operative/procedural note for further details. [facility], , 06/03/2024 5:19 PM
--- NOTE | 2024-06-03 17:34 | P.OP ---
Date of Procedure: 06/03/24 Preoperative Diagnosis: 1. L3-5 LUMBAR SPINE STENOSIS WITH RADICULOPATHY 2. LUMBAR STENOSIS WITH NEUROGENIC CLAUDICATION 3. LE WEAKNESS 4. LOW BACK PAIN Postoperative Diagnosis: 1. L3-5 LUMBAR SPINE STENOSIS WITH RADICULOPATHY 2. LUMBAR STENOSIS WITH NEUROGENIC CLAUDICATION 3. LE WEAKNESS 4. LOW BACK PAIN Procedure(s) Performed: 1. L3-4 AND L4-5 BILATERAL LAMINECTOMY, PARTIAL MEDIAL FACETECTOMY AND FORAMINOTOMY FOR COMPLETE NEURAL DECOMPRESSION Implants: NONE Anesthesia: GETA Surgeon: Rip Townsend Neurodiagnostic Technologist #1: Ted Leonardo (was present and assisted with all aspects of the caes from postiion to dressing placement) Estimated Blood Loss (ml): 200 IV fluids (ml): 1,200 Urine output (ml): 200 Pathology: none sent Condition: stable Disposition: PACU Indications for Procedure: Spine Surgery Clinical and Risk Review ROBINSON LEBLANC is a 58 YO MALEpresenting for evaluation of Lo w back pain, LE pain and weakness with difficulty with ambulation. It was my pleasure to have seen and examined ROBINSON LEBLANC . In our visit today we have had a chance to go over subjective complaints, physical examination findings and treatments including the natural course history without intervention and various interventional options. The patient's imaging demonstrates the following: L3-5 stenosis, severe central and b/l foraminal with post surgical changes L5-S1 previous laminectomy. Spondylosis L3-5 with disc collapse On a physical exam, ROBINSON LEBLANC demonstrates the following LE radiculopathy, LE weakness, cramping, neurogenic claudication, difficulty with ambulation due to pain and weakness. Refractory to conservative treatments. I have explained to the patient that as their condition progresses it will cause further neurological deficits and eventual paralysis. Based on the patients imaging, physical exam, and the rapid progression and disabling nature of their symptoms, at this time I recommend surgery in the form of a: L3-5 DECOMPRESSIVE LAMINECOMTY I discussed the risk and benefits of this procedure at length with ROBINSON LEBLANC . The patient and family agreed to consider pursuing the procedure above mentioned. Prior to surgery, they should follow up with her PCP (Cardio, ID, IM etc) for clearance. Questions were invited and answered, and the patient wishes to proceed as outlined below. Currently, I am recommendin. L3-5 DECOMPRESSIVE LAMINECOMTY 2. Obtain appropriate presurgical workup and clearances as discussed with the patient. 3. Review of surgical risks and benefits as well as an educational packet on the proposed surgical procedure. Risks: All surgical procedures come with inherent risks, including those related to positioning, anesthesia, intraoperative findings, and postoperative complications. It is important to understand that surgery does not come with any guarantee of a successful outcome as complications and adverse events are always possible. The patient was given a handout in the office today discussing the surgical procedure and risks associated with the intervention, both of which were discussed with the patient. These risks include but are not limited to the fol lowing: Experiencing same, different or even worse symptoms in back, neck, arms, or legs compared to before surgery. Requiring further surgery or other forms of treatment presently or at some time in the future at same or other levels of the intended spine surgery. On an extreme but fortunately relatively rare basis severe complications such as blindness, stroke, heart attack, temporary and/or permanent nerve injury, paralysis, coma, or may occur, sometimes without known explanation. Surgical complications may include but are not limited to risk of infection, fluid accumulation in the surgical dissection site, including a seroma or hematoma, that requires additional surgery, wound drainage, bleeding, new numbness or weakness, vision changes/loss, spinal fluid leakage, non-healing and/or infected incision, headaches, difficulty or inability to swallow, hoarseness, hemopneumothorax, pneumothorax, impotence, retrograde ejaculation, vaginal dryness; injury to nerves, spinal cord, blood vessels, lymphatics or other vital organs (i.e., bowel injury, injury to the great vessels); heterotopic bone formation; complications related to the hardware such as screws, rods, cages including misplaced hardware, device failure, instrumentation at the wrong spine level, hardware fracture/breakage, or hardware loosening; vertebral failure of the spinal column above or below the newly placed hardware; retained surgical instrumentations or devices and the need for further surgery. Medical risks of the planned spine surgery include but are not limited to generalized Infections to the whole body or local areas outside of the surgical site (sepsis), heart attack, bleeding, anaphylaxis, meningitis, seizure, epilepsy, hearing loss, burn mancia, laceration of the head or other areas of the body, bruising, hypersensitivity of the skin, bladder over distension; allergic reaction; shoulder injury related to positioning; fat, blood and air clots to other areas of the body like heart, lungs, brain; failure of internal organs such as lungs, kidneys, liver and excessive bleeding. If blood transfusions are necessary, note that transfusions may cause intolerance reactions such as anaphylaxis or other complex reactions. Despite best efforts, the results of spine surgery might not heal in terms of bone, soft tissues such as skin, fascia, ligaments, and joints. Additionally, in order to achieve best possible results, spine surgery may be carried out beyond the initially planned levels and involve decompression, fusion including insertion of hardware at levels other than the original intended area of surgical interest change some portions of the procedure in order to ensure the best possible outcomes. With spine surgery and spinal fusion, there are different off label uses of instrumentation (devices, implants and hardware) as well as biological substances (bone morphogenic proteins, demineralized bone matrix) as well as using extra bone from allograft sources (i.e. cadaver bone) or autograft (iliac crest bone, ribs, or the spine itself). The patient has been given information about these practices and their inherent risks and benefits. The patient has had a chance to review all the listed information, has been given print outs detailing this information, and has had all his/her questions answered to their satisfaction. It was my pleasure to have seen and examined ROBINSON LEBLANC . In our visit today we have had a chance to go over my understanding of our patient's current condition, the natural course history without intervention and various interventional options. Questions were invited and answered, and the patient wishes to proceed as outlined above. I have seen and examined the patient for 25 minutes and we have spent more than 50% of the time in repeat and detailed counseling about the patient's condition, its natural course history without and as much as can be predicted with surgery and re-review of various surgical treatment options. In conclusion, ROBINSON LEBLANC and their family requested we proceed with the above suggested surgery and are willing to accept risks and limitations of the suggested surgery as the nature of the disease process and our best attempts at treatment for the condition. Thank you again for allowing us to be part of your patient's care. Please don't hesitate to contact me if you have any further questions. Signed and authenticated by: Rip Tran [facility] [address] [place] [address] Description of Procedure: L3-5 open laminectomy The patient was seen and examined in the preoperative area. All preoperative protocols were followed. Informed consent was obtained, risks and benefits of the procedure were discussed at length. Risks including bleeding infection da mage to the surrounding tissue and risk of reoperation were discussed with the patient. Risk of anesthesia up to and including was discussed with the patient. These are outlined in the risk review. They were willing to accept these risks and all of the risks of surgery. The patient was given a weight- based dose of antibiotics in the form of [Ancef]. The patient was seen and evaluated by the anesthesia team who deemed them fit for surgery. The site was marked, the patient was willing to proceed with the procedure. The patient was transferred to the operative suite by the Department of an esthesia. They were then drifted off to sleep by the department anesthesia and [GETA] was performed. The patient tolerated this well. [Booker catheter was placed by nursing staff, atraumatically]. Once confirmation of lines and ventilation the patient was transferred to a [prone Michael table very carefully]. All bony prominences including wrists, elbows, axilla, chest, hips, and thighs, and feet were padded very well. Special attention was paid to the genitalia and these were padded accordingly. SCDs were placed on bilateral lower extremities and were connected. Arms were well padded and placed [on arm boards up and out in the 90/90 position]. Once in position, again we confirmed good ventilation capabilities and that lines were running appropriately. The patient's [Lumbar] spine was then exposed. 1010s were placed outlining the incision site. Standard alcohol was used to clean the incision site and allowed to dry. C-arm was used to biomark the patient and confirm level for incision wh ich was marked with a skin marker. Operative briefing was performed with all teams and everyone in agreement to proceed. The patient was then prepped and draped in a normal sterile fashion. Timeout was then performed and all parties were in agreement with the procedure to be performed. Midline skin incision made and subperiosteal dissection taken down over the lamina of L2-5. Facet joints located and protected. Furman 4 was placed at the pars of L4 to nicolaas a lateral image taken to confirm levels for operation. Bilateral laminectomy, partial medial facetectomy and foraminotomies were then performed at L3-4 AND L4-5 using high speed senait, 2-0 up-biting curette, 6-0 kerrison and 4-0 kerrison rongeurs. Ligamentum was removed. Deep facet joints capsule was removed along with cysts that were found deep from the facets. Foraminotomies done with kerrison and checked with a Samuels ball probe. Once decompression completed, meticulous hemostasis was done with floseal, paddies and gel foam. The wound bed was then irrigated with 6 L Abx Anfect and Gen followed by 6L NSS. The wound was inspected. Good decompression noted with no injury. X Ray taken AP and lateral with markers to nicolasa the decompression. Surgicel was placed on the dura. 2g Vanco powder placed in the wound. Deep drain placed and secured with a stitch to the skin. We then proceeded with closure. #1 PDS placed in the facia. 0 Vicryl placed in the deep subq and 2-0 in the superficial. Adolphus placed in the skin. Wound edges approximated very well. The wound was then cleaned and dressed sterilly with Optifoam dressing, drain sponge and tegaderm. The patient was transferred back to their hospital bed atraumatically. [Drain continued to hold suction and was in a good position]. The patient was then awakened and extubated by the department of anesthesia having tolerated the procedure very well with no complications. They were transferred to the postoperative care unit in stable condition.
[2024-06-03] MEDS: HYDROmorphone 0.5 MG/0.5 ML SYRINGE IVP PRN (18:03)
[2024-06-03 20:41] LABS: Glucose,Whole Blood 111 mg/dL (70-110)
[2024-06-03] MEDS: TRANEXAMIC 1,000 MG/100ML-NACL 1,000 MG in SALINE 1 100ML.BAG IVPB SCH (20:42)
[2024-06-03] MEDS: ACETAMINOPHEN TAB 325 MG TAB PO SCH (21:12)
[2024-06-03] MEDS: HYDROcodone/APAP 10-325MG 1 EACH TAB PO PRN (23:05)
[2024-06-04 06:27] LABS: Glucose,Whole Blood 140 mg/dL (70-110)
--- NOTE | 2024-06-04 08:48 | P.PN ---
Subjective Progress Note Date: 06/04/24 Principal diagnosis: left lower extremity radiculopathy;. Left lower extremity weakness; low back pain; spondylolisthesis L5-S1; degenerative disc disease; lumbar spondylosis Patient was seen at bedside this morning on 4 S. lying in the semirecumbent position with dressing and drain in place over lumbar spine. Patient says he has urinated several times since surgery yesterday without issue. Patient states he is having some pain in the back at this time however it is controlled with oral medication. Patient says he does have significant improvement in the numbness and tingling in the left leg since surgery yesterday. Patient says he is looking forward to working with therapy later today. Patient denies any other issues at this time. Objective - Vital Signs Vital signs: Vital Signs Temp 98.3 F 06/04/24 06:51 Pulse 64 06/04/24 06:51 Resp 18 06/04/24 06:51 BP 129/82 06/04/24 06:51 Pulse Ox 96 06/04/24 06:51 FiO2 Intake & Output 06/03/24 06/04/24 06/04/24 18:59 06:59 18:59 Intake Total 1952 800 Output Total 200 550 Balance 1752 250 Intake: IV 1951 Intake, IV Titration 800 Amount Sodium Chloride 0.9% 1, 750 000 ml @ 75 mls/hr IV . [id number] [facility] Rx#:[id number] ceFAZolin 2 gm In Sodium 50 Chloride 0.9% 50 ml @ 100 mls/hr IVPB Q8H [facility] Rx#: [id number] Output: Urine 550 Estimated Blood Loss 200 Other: Voiding Method Toilet - Exam Inspection: Negative for any open fractures, significant erythema/ecchymosis/ope n wounds. Sensation: Improved sensation extending from left hip anteriorly to just proximal to the left knee, improved since surgery Palpation: Moderate tenderness to palpation over the spine near incisions. Nontender to palpation on rest of exam. Range of motion: Patient does have full range of motion throughout bilateral upper extremities and right lower extremity exam. Patient does have limited range of motion in left hip flexion due to referred pain and stiffness in the low back. Patient does have good range of motion in left ankle and left knee in flexion/tension. Motor: 4+/5 in all major motor groups in bilateral upper extremities and right lower extremity on exam. 4-/5 in left lower extremity on exam Neurovascular: Radial pulse intact, 2+ bilaterally. Cap refill under 3 seconds in digits of upper extremities. DP pulses palpable bilaterally. Special test: Negative Homans bilaterally. Negative clonus bilaterally. Negative Kristin bilaterally. - Labs CBC & Chem 7: 05/31/24 05:24 05/31/24 05:24 Labs: Abnormal Lab Results - Last 24 Hours (Table) 06/03/24 06/04/24 Range/Units 20:39 06:23 POC Glucose (mg/dL) 111 H 140 H (70-110) mg/dL Assessment and Plan Assessment: 1 left lower extremity radiculopathy;. Left lower extremity weakness; low back pain; spondylolisthesis L5-S1; degenerative disc disease; lumbar spondylosis -Postop day 1 status post L3-L5 laminectomy Plan: 1. left lower extremity radiculopathy;. Left lower extremity weakness; low back pain; spondylolisthesis L5-S1; degenerative disc disease; lumbar spondylosis - surgery performed yesterday, 06/03/2024L3-L5 laminectomy. Patient may weight-bear as tolerated with walker as needed. Pain medication as needed. Appreciate medical management. Minimal output in drain. Dressings appear to be clean, dry, intact. Assess dressings daily. We will continue to follow patient during stay in hospital. 2. Appreciate medical management 3. Pain management - norco; gabapentin; Flexeril 4. DVT prophylaxis recs 5. GI prophylaxis - senna; Protonix; milk of magnesia 6. PT/OT -weightbearing as tolerated with walker as needed 7. Encourage incentive spirometer use Time with Patient: Less than 30
[2024-06-04 09:53] LABS: Basophils # (A) 0.02 X 10*3/uL (0.00-0.10); Basophils % (A) 0.2 %; Eosinophils # (A) 0 X 10*3/uL (0.04-0.35); Eosinophils % (A) 0 %; HCT 37.2 % (39.6-50.0); HGB 12.3 g/dL (13.0-17.0); Lymphocytes # (A) 0.68 X 10*3/uL (0.90-5.00); Lymphocytes % (A) 5.4 %; MCH 31.2 pg (27.0-32.0); MCHC 33.1 g/dL (32.0-37.0); MCV 94.4 FL (80.0-97.0); Mean Platelet Volume 10.4 FL (9.5-12.2); Monocytes # (A) 1.01 X 10*3/uL (0.20-1.00); NRBC Per 100 WBC 0 X 10*3/uL (0.00-0.01); Neutrophils # (A) 10.79 X 10*3/uL (1.80-7.70); Neutrophils % (A) 85.8 %; Platelet Count 232 X 10*3/uL (140-440); RBC 3.94 X 10*6/uL (4.40-5.60); RDW 13.8 % (11.5-14.5); WBC 12.57 X 10*3/uL (4.50-10.00)
[2024-06-04 10:29] LABS: BUN/Creat Ratio 21.67 Ratio (12.00-20.00); Blood Urea Nitrogen 19.5 mg/dL (9.0-27.0); Carbon Dioxide 22.9 mmol/L (21.6-31.8); Chloride 108 mmol/L (96-109); Glucose 124 mg/dL (70-110); Potassium 4.4 mmol/L (3.5-5.5); Sodium 141 mmol/L (135-145)
[2024-06-04 10:30] LABS: Calcium 8.3 mg/dL (8.7-10.3)
[2024-06-04 11:26] LABS: Glucose,Whole Blood 123 mg/dL (70-110)
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
[2024-06-04 16:19] LABS: Glucose,Whole Blood 139 mg/dL (70-110)
[2024-06-04 21:05] LABS: Glucose,Whole Blood 179 mg/dL (70-110)
[2024-06-05 06:14] LABS: Glucose,Whole Blood 119 mg/dL (70-110)
--- NOTE | 2024-06-05 09:57 | P.PN ---
Subjective Progress Note Date: 06/05/24 Principal diagnosis: left lower extremity radiculopathy;. Left lower extremity weakness; low back pain; spondylolisthesis L5-S1; degenerative disc disease; lumbar spondylosis Patient was seen at bedside this morning lying in the semicomposition with dressing and drain in place over the lumbar spine. Patient says he is hoping to go home today. Patient says he has had bowel movement and urinated several times since surgery without issue. Patient says pain is controlled with oral medication. Patient denies any other issues at this time. Objective - Vital Signs Vital signs: Vital Signs Temp 97.7 F 06/05/24 06:49 Pulse 59 L 06/05/24 06:49 Resp 16 06/05/24 06:49 BP 129/80 06/05/24 06:49 Pulse Ox 97 06/05/24 06:49 FiO2 Intake & Output 06/04/24 06/05/24 06/05/24 18:59 06:59 18:59 Output Total 0 Balance 0 Output: Drainage 0 Back 0 Other: # Voids 2 - Exam Inspection: Negative for any open fractures, significant erythema/ecchymosis. Dressings over lumbar spine were changed. Pain was removed at bedside. New dressing placed over drain incision. Incisions appear to be healing well. Charlotte well aligned and intact. Sensation: Improved sensation extending from left hip anteriorly to just proximal to the left knee, improved since surgery Palpation: Moderate tenderness to palpation over the spine near incisions. Nontender to palpation on rest of exam. Range of motion: Patient does have full range of motion throughout bilateral upper extremities and right lower extremity exam. Patient does have limited range of motion in left hip flexion due to referred pain and stiffness in the low back. Patient does have good range of motion in left ankle and left knee in flexion/tension. Motor: 4+/5 in all major motor groups in bilateral upper extremities and right lower extremity on exam. 4-/5 in left lower extremity on exam Neurovascular: Radial pulse intact, 2+ bilaterally. Cap refill under 3 seconds in digits of upper extremities. DP pulses palpable bilaterally. Special test: Negative Homans bilaterally. Negative clonus bilaterally. Negative Kristin bilaterally. - Labs CBC & Chem 7: 06/04/24 05:43 06/04/24 05:43 Labs: Abnormal Lab Results - Last 24 Hours (Table) 06/04/24 06/04/24 06/04/24 Range/Units 05:43 05:43 11:24 WBC 12.57 H (4.50-10.00) X 10*3/uL RBC 3.94 L (4.40-5.60) X 10*6/uL Hgb 12.3 L (13.0-17.0) g/dL Hct 37.2 L (39.6-50.0) % Immature Gran # 0.07 H (0.00-0.04) X 10*3/uL Neutrophils # 10.79 H (1.80-7.70) X 10*3/uL Lymphocytes # 0.68 L (0.90-5.00) X 10*3/uL Monocytes # 1.01 H (0.20-1.00) X 10*3/uL Eosinophils # 0 L (0.04-0.35) X 10*3/uL BUN/Creatinine Ratio 21.67 H (12.00-20.00) Ratio Glucose 124 H (70-110) mg/dL POC Glucose (mg/dL) 123 H (70-110) mg/dL Calcium 8.3 L (8.7-10.3) mg/dL 06/04/24 06/04/24 06/05/24 Range/Units 16:17 21:03 06:13 WBC (4.50-10.00) X 10*3/uL RBC (4.40-5.60) X 10*6/uL Hgb (13.0-17.0) g/dL Hct (39.6-50.0) % Immature Gran # (0.00-0.04) X 10*3/uL Neutrophils # (1.80-7.70) X 10*3/uL Lymphocytes # (0.90-5.00) X 10*3/uL Monocytes # (0.20-1.00) X 10*3/uL Eosinophils # (0.04-0.35) X 10*3/uL BUN/Creatinine Ratio (12.00-20.00) Ratio Glucose (70-110) mg/dL POC Glucose (mg/dL) 139 H 179 H 119 H (70-110) mg/dL Calcium (8.7-10.3) mg/dL Assessment and Plan Assessment: 1 left lower extremity radiculopathy;. Left lower extremity weakness; low back pain; spondylolisthesis L5-S1; degenerative disc disease; lumbar spondylosis -Postop day 2 status post L3-L5 laminectomy Plan: 1. left lower extremity radiculopathy;. Left lower extremity weakness; low back pain; spondylolisthesis L5-S1; degenerative disc disease; lumbar spondylosis - surgery performed 06/03/2024L3-L5 laminectomy. Patient may weight-bear as tolerated with walker as needed. Pain medication as needed. Appreciate medical management. Minimal output in drain. Dressings changed at bedside this morning. Drain removed at bedside. Patient stable for an orthopedic standpoint for discharge. Orthopedics is signing off at this time. Follow-up in the outpatient setting in [address] Townsend. 2. Appreciate medical management 3. Pain management - norco; gabapentin; Flexeril 4. DVT prophylaxis recs 5. GI prophylaxis - senna; Protonix; milk of magnesia 6. PT/OT -weightbearing as tolerated with walker as needed 7. Encourage incentive spirometer use Time with Patient: Less than 30
[2024-06-05] MEDS: CYCLOBENZAPRINE 5 MG TAB PO PRN (10:42)
[2024-06-05 11:10] LABS: HCT 42.7 % (39.0-53.0); HGB 13.8 gm/dL (13.0-17.5); MCH 31.5 pg (25.0-35.0); MCHC 32.3 g/dL (31.0-37.0); MCV 97.4 fL (80.0-100.0); Mean Platelet Volume 7.5; Platelet Count 236 k/uL (150-450); RBC 4.38 m/uL (4.30-5.90); RDW 13.7 % (11.5-15.5); WBC 13.5 k/uL (3.8-10.6)
[2024-06-05 11:23] LABS: ALT 23 U/L (4-49); AST 39 U/L (17-59); African American GFR (CKD) >90 (>60 ml/min/1.73 sqM); Albumin 3.8 g/dL (3.5-5.0); Albumin/Globulin Ratio 1.4; Alkaline Phosphatase 49 U/L (38-126); Anion Gap 7 mmol/L; Blood Urea Nitrogen 20 mg/dL (9-20); Calcium 8.8 mg/dL (8.4-10.2); Carbon Dioxide 29 mmol/L (22-30); Chloride 104 mmol/L (98-107); Globulin 2.8 g/dL; Glucose 118 mg/dL (74-99); Non-African American GFR(CKD) >90 (>60 ml/min/1.73 sqM); Potassium 4.4 mmol/L (3.5-5.1); Sodium 140 mmol/L (137-145); Total Bilirubin 0.1 mg/dL (0.2-1.3); Total Protein 6.6 g/dL (6.3-8.2)
[2024-06-05 11:26] LABS: Glucose,Whole Blood 141 mg/dL (70-110)
[2024-06-05 16:13] LABS: Appearance,Urine Clear (Clear); Bilirubin,Urine Negative (Negative); Blood,Urine Negative (Negative); Color,Urine Light Yellow; Glucose,Urine (UA) Negative (Negative); Ketones,Urine Negative (Negative); Leukocyte Esterase,Urine Negative (Negative); Nitrite,Urine Negative (Negative); PH, Urine 6.5 (5.0-8.0); Protein,Urine Negative (Negative); Specific Gravity,Urine 1.027 (1.001-1.035); Urobilinogen,Urine <2.0 mg/dL (<2.0)
[2024-06-05 16:34] LABS: Glucose,Whole Blood 118 mg/dL (70-110)
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
[2024-06-05 20:12] LABS: Glucose,Whole Blood 113 mg/dL (70-110)
[2024-06-06 03:20] VITALS: RESP 16
[2024-06-06 05:58] LABS: Glucose,Whole Blood 96 mg/dL (70-110)
[2024-06-06 08:17] VITALS: BP 134/77; PULSE 60; TEMP 98
[2024-06-06 08:36] LABS: MCH 30.2 pg (27.0-32.0); MCHC 31.6 g/dL (32.0-37.0); MCV 95.5 FL (80.0-97.0); Mean Platelet Volume 10.4 FL (9.5-12.2); NRBC Per 100 WBC 0 X 10*3/uL (0.00-0.01); Platelet Count 209 X 10*3/uL (140-440); RBC 3.98 X 10*6/uL (4.40-5.60); RDW 13.7 % (11.5-14.5); WBC 8.57 X 10*3/uL (4.50-10.00)
[2024-06-06 11:40] LABS: Glucose,Whole Blood 117 mg/dL (70-110)
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
== END 2024-06-06 12:36 | disposition home or self-care (01) | DRG 520 ==
LOC: EC 03:05 → 6NMEDSUR 07:06 → OBSVTOIN 06-02 08:35 → 4SSUR 06-03 17:46
PROVIDERS: ADMIT Family Medicine; ATTEND Family Medicine
PROC: 00NY0ZZ Release Lumbar Spinal Cord, Open Approach (ICD-10-PCS; 2024-06-03)
PROC: 0SB20ZZ Excision of Lumbar Vertebral Disc, Open Approach (ICD-10-PCS; 2024-06-03)
PROC: 8E0WXBF Computer Assisted Procedure of Trunk Region, With Fluoroscopy (ICD-10-PCS; 2024-06-03)
PROC: 01NB0ZZ Release Lumbar Nerve, Open Approach (ICD-10-PCS; principal; 2024-06-03 10:35)
DX: M43.17 Spondylolisthesis, lumbosacral region (principal); M48.07 Spinal stenosis, lumbosacral region; M51.16 Intervertebral disc disorders with radiculopathy, lumbar region; M25.78 Osteophyte, vertebrae; M47.26 Other spondylosis with radiculopathy, lumbar region; M48.062 Spinal stenosis, lumbar region with neurogenic claudication; K59.00 Constipation, unspecified; N40.0 Benign prostatic hyperplasia without lower urinary tract symptoms; K57.30 Diverticulosis of large intestine without perforation or abscess without bleeding; F32.A Depression, unspecified; S39.012A Strain of muscle, fascia and tendon of lower back, initial encounter; Z68.30 Body mass index [BMI] 30.0-30.9, adult; Z87.442 Personal history of urinary calculi; Z98.1 Arthrodesis status; E66.9 Obesity, unspecified; Z88.6 Allergy status to analgesic agent; Z88.8 Allergy status to other drugs, medicaments and biological substances; Z87.891 Personal history of nicotine dependence
CPT/HCPCS: 36415; 72100; 72158; 74176; 80048; 80053; 81001; 81003; 83036; 83735; 84100; 85025; 85027; 85610; 85730; 86850; 86900; 86901; 96361; 96365; 96375; 99285